=== PATIENT | female | born 1940 | race Hispanic/Latino ===

== ENCOUNTER 2017-07-08 21:42 | Emergency (ER) | payer MEDICARE ==
[~2017-07-08] VITALS: Ht 152.4 cm; Wt 46.7 kg
[~2017-07-08 21:42] MED LIST: AZATHIOPRINE50 MG PO; CLONAZEPAM0.5 MG PO; FENOFIBRATE145 MG PO; LATANOPROST2.5 ML OP; PENTASA500 MG PO; RISPERIDONE1 MG PO
--- OUTSIDE RECORDS SUMMARY | 2017-07-08 21:45 | XMS REPORT ---
Author Author [facility] Address Unknown Phone Unavailable Care Team Providers Care Sheriffs Officer Name Role Phone BRIA MARTINEZ Unavailable Unavailable Problems This patient has no known problems. Allergies, Adverse Reactions, Alerts This patient has no known allergies or adverse reactions. Medications This patient has no known medications. Results Test Description Test Time Test Comments Text Results Atomic Results Result Comments CT ABDOMEN/PELVIS W [place] [address] Patient Name: HILDA LUKE MR #: [id number] : 1940 Age/Sex: 76/F Req #: [id number] Adm Physician: BRIA MARTINEZ MD Ordered by: DANIEL MARQUES MD Report #: [id number] Location: MED/SURG3 Room/Bed: [facility] _ Procedure: [id number] CT/CT ABDOMEN/PELVIS W Exam Date: 03/10/17 Exam Time: 1110 REPORT STATUS: Signed PROCEDURE: CT ABDOMEN AND PELVIS WITH CONTRAST TECHNIQUE: The abdomen and pelvis were scanned utilizing a multidetector helical scanner from the diaphragm to the lesser trochanter after the IV administration of 100 cc of Isovue 370 and the oral administration of 900 cc of water. Coronal and sagittal multiplanar reformations were obtained. COMPARISON: None. INDICATIONS: ANEMIA FINDINGS: LOWER THORAX: Normal. HEPATOBILIARY: No focal hepatic lesions. No biliary ductal dilatation. Gallbladder partially contracted. SPLEEN: No splenomegaly. PANCREAS: No focal masses or ductal dilatation. ADRENALS: No adrenal nodules. KIDNEYS /URETERS: No hydronephrosis, stones, or solid mass lesions. Right superior pole 8.5 cm simple cyst. Tiny hypodensity in the right inferior renal pole is too small to characterize but statistically likely represents a cyst. Scarring in the left superior renal pole with adjacent calcification. PELVIC ORGANS/BLADDER: Hysterectomy. Bladder unremarkable. PERITONEUM / RETROPERITONEUM: Trace fluid in the pelvis. No free air. LYMPH NODES: No lymphadenopathy. VESSELS: Mild scattered atherosclerotic calcifications. No abdominal aortic aneurysm. GI TRACT: No distention or wall thickening. Appendix is normal. BONES AND SOFT TISSUES: Unremarkable. IMPRESSION: 1. Trace nonspecific free fluid in the pelvis. 2. Otherwise, no acute abnormalities. 3. Right renal 8.5 cm simple cyst. Dictated by: Naif Anne M.D. on 03/10/2017 at 14:46 Electronically approved by: Naif Anne M.D. on 03/10/2017 at 14:46 Dictated By: NAIF ANNE MD [id number] COPY TO: DANIEL MARQUES MD CHEST 2 VIEWS [place] [address] Patient Name: HILDA LUKE MR #: [id number] : 1940 Age/Sex: 76/F Req #: [id number] Adm Physician: BRIA MARTINEZ MD Ordered by: BRIA MARTINEZ MD Report #: [id number] Location: MED/SURG3 Room/Bed: 2861 ___ Procedure: [id number] DX/CHEST 2 VIEWS Exam Date: 03/08/17 Exam Time: 1830 REPORT STATUS: Signed EXAMINATION: CHEST 2 VIEWS INDICATION: COMPARISON: None FINDINGS: PA and lateral views TUBES and LINES: None. LUNGS: Lungs are well inflated. Lungs are clear. There is no evidence of pneumonia or pulmonary edema. PLEURA: No pleural effusion or pneumothorax. HEART AND MEDIASTINUM: The cardiomediastinal silhouette is unremarkable. Prominent cardiac fat pad. BONES AND SOFT TISSUES: Limited by generalized demineralization. No acute osseous lesion. Soft tissues are unremarkable. UPPER ABDOMEN: No free air under the diaphragm. IMPRESSION: No acute thoracic abnormality. Signed by: Dr. Otto Matthews MD on 03/08/2017 7:32 PM Dictated By: OTTO MATTHEWS MD 31 Transcribed By: PITO on 03/08/171931 COPY TO: BRIA MARTINEZ MD
[2017-07-08] MEDS ORDERED: SODIUM CHLORIDE 0.9% 1000ML 1,000 ML IV ONE (22:15)
[2017-07-08] MEDS ORDERED: ACETAMINOPHEN 325 MG TAB PO ONE (22:15)
[2017-07-08] MEDS ORDERED: CEFTRIAXONE SOD 1 GM VIAL IV ONE (22:15)
[2017-07-08 22:38] LABS: BASOPHILS % 0.1 % (0.0-1.0); EOSINOPHILS % 0.6 % (0.0-6.0); HEMATOCRIT 37.1 % (34.2-44.1); LYMPHOCYTES # (AUTO) 0.6 (1.0-3.2); LYMPHOCYTES % 9.3 % (18.0-39.1); MEAN CORPUSCULAR HEMOGLOBIN 32.9 pg (28-32); MEAN CORPUSCULAR VOLUME 93.9 fL (81-99); MONOCYTES # (AUTO) 0.5 (0.2-0.8); MONOCYTES % 6.8 % (4.4-11.3); NEUTROPHILS # (AUTO) 5.6 (2.1-6.9); NEUTROPHILS % 83.1 % (38.7-80.0); PLATELET COUNT 178 x10e3/uL (140-360); RED BLOOD COUNT 3.95 x10e6/uL (3.6-5.1); RED CELL DISTRIBUTION WIDTH 12.7 % (11.7-14.4)
[2017-07-08 22:50] LABS: ALBUMIN 3.9 g/dL (3.5-5.0); ALBUMIN/GLOBULIN RATIO 1.1 (0.8-2.0); ANION GAP 16.4 mmol/L (8-16); CALCIUM 9.9 mg/dL (8.4-10.2); CREATININE, SERUM 1.13 mg/dL (0.57-1.11); POTASSIUM 3.4 mmol/L (3.5-5.1)
--- NOTE | 2017-07-08 23:05 | Diagnostic Imaging Report ---
EXAMINATION: CHEST SINGLE (PORTABLE) INDICATION: Cough, fever COMPARISON: 03/08/2017 FINDINGS: TUBES and LINES: None. LUNGS: Lungs are not well inflated. Lungs are clear. There is no evidence of pneumonia or pulmonary edema. PLEURA: No pleural effusion or pneumothorax. HEART AND MEDIASTINUM: The cardiomediastinal silhouette is unremarkable. BONES AND SOFT TISSUES: No acute osseous lesion. Soft tissues are unremarkable. UPPER ABDOMEN: No free air under the diaphragm. IMPRESSION: 1. No acute thoracic abnormality. 2. Stable chest. Signed by: Dr. Javon Parekh M.D. on 07/08/2017 11:02 PM
[2017-07-08 23:08] LABS: INFLUENZAE A&B ANTIGEN (RAPID) NEGATIVE (NEGATIVE); STREPTOCOCCUS GRP A ANTIGEN POSITIVE (NEGATIVE)
[2017-07-08 23:32] VITALS: BP 139/77
== END 2017-07-09 00:05 | disposition home or self-care (01) ==
LOC: ER 21:42
DX: R05 Cough (principal); J20.9 Acute bronchitis, unspecified; J02.0 Streptococcal pharyngitis
CPT/HCPCS: 36415; 71045; 80053; 83518; 83605; 85025; 87040; 87400; 99284; J0696; J7030

== ENCOUNTER 2017-10-14 20:04 | Emergency (ER) | payer MEDICARE ==
[~2017-10-14] VITALS: Ht 152.4 cm; Wt 46.7 kg
[2017-10-14] MEDS ORDERED: SODIUM CHLORIDE 0.9% 1000ML 1,000 ML IV ONE (20:30)
[2017-10-14 20:37] LABS: BASOPHILS % 0.3 % (0.0-1.0); EOSINOPHILS # (AUTO) 0.1 (0.0-0.4); EOSINOPHILS % 1.3 % (0.0-6.0); HEMATOCRIT 38.8 % (34.2-44.1); HEMOGLOBIN 12.9 g/dL (12.0-16.0); LYMPHOCYTES # (AUTO) 1.3 (1.0-3.2); LYMPHOCYTES % 20.2 % (18.0-39.1); MEAN CORPUSCULAR HEMOGLOBIN 31.5 pg (28-32); MEAN CORPUSCULAR HGB CONC 33.2 g/dL (31-35); MEAN CORPUSCULAR VOLUME 94.6 fL (81-99); MONOCYTES # (AUTO) 0.7 (0.2-0.8); MONOCYTES % 10.6 % (4.4-11.3); NEUTROPHILS # (AUTO) 4.2 (2.1-6.9); NEUTROPHILS % 67.3 % (38.7-80.0); PLATELET COUNT 223 x10e3/uL (140-360); RED CELL DISTRIBUTION WIDTH 13.3 % (11.7-14.4)
[2017-10-14 20:41] LABS: CLARITY,URINE CLEAR (CLEAR); COLOR,URINE YELLOW (YELLOW)
[2017-10-14 20:42] LABS: BILIRUBIN,URINE NEGATIVE (NEGATIVE); KETONES,URINE NEGATIVE (NEGATIVE); LEUKOCYTE ESTERASE ,URINE 1+ (NEGATIVE); NITRITE,URINE NEGATIVE (NEGATIVE); PROTEIN,URINE DIPSTICK NEGATIVE (NEGATIVE); URINE UROBILINOGEN 0.2 mg/dL (0.2 - 1)
[2017-10-14 20:58] LABS: EPITHELIAL CELLS,URINE FEW /LPF; TRANSITIONAL EPI CELLS,URINE MODERATE
[2017-10-14 20:59] LABS: ALBUMIN 3.4 g/dL (3.5-5.0); ANION GAP 17.7 mmol/L (8-16); CALCIUM 9.9 mg/dL (8.4-10.2); CREATININE, SERUM 1.09 mg/dL (0.57-1.11); POTASSIUM 3.7 mmol/L (3.5-5.1)
[2017-10-14 21:02] LABS: RENAL EPITHELIAL CELLS,URINE MODERATE
[2017-10-14] MEDS ORDERED: SODIUM CHLORIDE 0.9% 50ML 50 ML ONE (21:07)
[2017-10-14] MEDS ORDERED: IOPAMIDOL 370 MG/ML 200 ML INFUS..BTL INJ ONE (21:08)
--- NOTE | 2017-10-14 21:42 | Diagnostic Imaging Report ---
EXAM: CT ABDOMEN AND PELVIS with IV CONTRAST DATE: 10/14/2017 8:23 PM Time stamp on Exam: 2121 hours INDICATION: Abdominal pain, diarrhea COMPARISON: None TECHNIQUE: The abdomen and pelvis were scanned using a multidetector helical scanner. Coronal and sagittal reformations were obtained. Routine protocol performed. IV Contrast: 100 cc Isovue-370 Oral Contrast: Water CTDIvol has been reviewed. It is below the limits set by the Radiation Protocol Committee (RPC). FINDINGS: LOWER THORAX: No consolidations LIVER: No masses BILIARY: The gallbladder is unremarkable. No ductal dilation. SPLEEN: No masses PANCREAS: No masses ADRENALS: No nodules KIDNEYS: Symmetric perfusion. No enhancing masses. No hydronephrosis. Simple cyst measuring 9 cm arising from the superior pole of the right kidney. Scarring superior pole of the left kidney. GI TRACT: Mucosal enhancement of the descending and sigmoid colon, and to a lesser extent the transverse colon. Normal appendix. No bowel obstruction. VESSELS: Mild atherosclerotic changes of the abdominal aorta. PERITONEUM/RETROPERITONEUM: No free air or fluid LYMPH NODES: No lymphadenopathy REPRODUCTIVE ORGANS: The uterus and ovaries are not visualized. BLADDER: Unremarkable SOFT TISSUES: Unremarkable BONES: No suspicious bone lesions. IMPRESSION: Nonspecific colitis predominantly involving the descending and rectosigmoid colon. No bowel obstruction or abscess formation. Signed by: Dr. Estelle Corral M.D. on 10/14/2017 9:38 PM
[2017-10-14 21:54] VITALS: BP 120/59
== END 2017-10-14 22:00 | disposition home or self-care (01) ==
LOC: ER 20:04
DX: K52.89 Other specified noninfective gastroenteritis and colitis (principal)
CPT/HCPCS: 36415; 74177; 80053; 81001; 82150; 83690; 85025; 99284; J7030; Q9967

== ENCOUNTER 2018-03-16 22:14 | Observation (INO) | payer MEDICARE ==
[~2018-03-16] VITALS: Ht 152.4 cm; Wt 49.9 kg
[2018-03-16 22:39] LABS: BASOPHILS % 0.1 % (0.0-1.0); HEMATOCRIT 34.2 % (34.2-44.1); HEMOGLOBIN 11.4 g/dL (12.0-16.0); LYMPHOCYTES % 12.3 % (18.0-39.1); MEAN CORPUSCULAR HEMOGLOBIN 31.4 pg (28-32); MEAN CORPUSCULAR HGB CONC 33.3 g/dL (31-35); MEAN CORPUSCULAR VOLUME 94.2 fL (81-99); MONOCYTES # (AUTO) 0.4 (0.2-0.8); NEUTROPHILS # (AUTO) 6.6 (2.1-6.9); NEUTROPHILS % 82.2 % (38.7-80.0); PLATELET COUNT 173 x10e3/uL (140-360); RED BLOOD COUNT 3.63 x10e6/uL (3.6-5.1); RED CELL DISTRIBUTION WIDTH 14.6 % (11.7-14.4)
[2018-03-16 22:51] LABS: ALBUMIN 3.7 g/dL (3.5-5.0); ALBUMIN/GLOBULIN RATIO 1.2 (0.8-2.0); ANION GAP 17.8 mmol/L (8-16); CALCIUM 8.7 mg/dL (8.4-10.2); CREATININE, SERUM 1.07 mg/dL (0.57-1.11); POTASSIUM 3.8 mmol/L (3.5-5.1)
[2018-03-16] MEDS ORDERED: AZITHROMYCIN 500MG/NS 250 ML 250 ML IV STA (23:38)
--- NOTE | 2018-03-16 23:56 | Diagnostic Imaging Report ---
EXAM: CHEST SINGLE (PORTABLE), AP 1 view INDICATION: Cough, congestion COMPARISON: AP view of the chest July 08, 2017 FINDINGS: LINES/TUBES: None LUNGS: No consolidations or edema. Stable biapical scarring. PLEURA: No effusions or pneumothorax. HEART AND MEDIASTINUM: Normal size and contour. BONES AND SOFT TISSUES: No acute findings. IMPRESSION: No acute thoracic abnormality. Signed by: Dr. Estelle Corral M.D. on 03/16/2018 11:53 PM
[2018-03-17] VITALS (9 sets, daily range): BP systolic 122–153; BP diastolic 58–70
[2018-03-17] MEDS ORDERED: SIMVASTATIN40 MG PO
[2018-03-17] MEDS ORDERED: apixaban PO
[2018-03-17] MEDS ORDERED: VITAMIN D1000 UNI1 PO (00:01)
[2018-03-17] MEDS ORDERED: MIRTAZAPINE15 MG PO (00:01)
[2018-03-17] MEDS ORDERED: PROLIA60 MG/1 ML SQ (00:05)
[2018-03-17] MEDS: CEFTRIAXONE SOD 1 GM VIAL IV SCH (00:23)
[2018-03-17] MEDS ORDERED: LEVOFLOXACIN 750MG/DEXTROSE PREMIX BAG 150ML IV SCH (00:30)
[2018-03-17] MEDS ORDERED: AZITHROMYCIN 500MG/SOD CHL 0.9% 250ML BAG IV SCH (00:30)
[2018-03-17 01:01] LABS: CREATINE KINASE MB 3.2 ng/mL (0-5.0)
[2018-03-17] MEDS: ACETAMINOPHEN/CODEINE 300MG - 30MG TAB PO PRN (03:25)
[2018-03-17] MEDS: GUAIFENESIN 200 MG/10 ML UDC PO PRN ×3 (03:38→12:13)
[2018-03-17] MEDS: ALBUTEROL/IPRATROPIUM 3 ML NEB NEB PRN ×3 (07:32→19:15)
[2018-03-17] MEDS ORDERED: SODIUM CHLORIDE 0.45% 1,000 ML IV ONE (14:30)
[2018-03-17] MEDS ORDERED: METHYLPREDNISOLONE SOD SUCC 40 MG/ML VIAL IV ONE (14:50)
--- NOTE | 2018-03-17 15:59 | History and Physical ---
CHIEF COMPLAINT: Cough, congestion, and subjective fever. HPI: This is a 77-year-old female with past medical history of Crohn disease and history of DVT, on Imuran, who comes into the ED with complaints of cough, congestion, and subjective fever ongoing for the last 2 days prior to arrival to the ED. According to the daughter at bedside, she has been having increasing cough and congestion. Patient also reports subjective fever at home. Denies any chest pain or palpitation. No abdominal pain or diarrhea. Patient is seen and evaluated at bedside on the medical floor, currently doing much better after given IV antibiotics in the ED. REVIEW OF SYSTEMS: Pertinent positive: Cough, congestion, subjective fever. Pertinent negative: Denies any chest pain, palpitation, nausea, vomiting, diarrhea, dysuria, hematuria, frequency, urgency, lightheadedness, dizziness, abdominal pain, headache, shortness of breath, fever, or any other complaints. Rest of the 14-point review of systems has reviewed with the patient and are negative. ALLERGIES: TO LEVAQUIN. HOME MEDICATIONS 1. Vitamin D3 1000 units daily. 2. Pentasa 500 mg p.o. a.c. at bedtime. 3. Mirtazapine 15 mg at bedtime. 4. Simvastatin 40 mg daily. 5. Eliquis 2.5 mg daily. PAST MEDICAL HISTORY: History of Crohn disease and history of DVT, on Imuran. PAST SURGICAL HISTORY: None. FAMILY HISTORY: Hypertension, diabetes. SOCIAL HISTORY: No drugs, no alcohol, does not smoke. Good social support. LABORATORY FINDINGS: Show white count 8, hemoglobin 11.4, hematocrit is 34, platelets of 173. Chemistry: Sodium is 148, potassium 3.8, chloride 113, bicarb 21. Anion gap of 17, BUN is 30, creatinine is 1, glucose is 105, calcium 8.7, total bilirubin 0.2. AST 59, ALT 103. Troponins were negative x2. Albumin was 3.7. Influenza was negative. MICROBIOLOGY: Blood cultures are pending. IMAGING STUDIES: Chest x-ray was negative. PHYSICALLY EXAMINATION VITAL SIGNS: Temperature is 98.4, pulse 78, respiratory rate is 16, blood pressure 132/58, pulse ox 98% on 2 liters nasal cannula. GENERAL: Not in acute distress, alert and oriented x3. Cooperative on examination. HEENT: Head; normocephalic, atraumatic. Eyes; pupils equal, round and reactive to light bilaterally. Extraocular movements are intact bilaterally. Throat; no evidence of any erythema or exudates in the posterior pharynx, has poor dentition. NECK: Supple. Good range of motion. PULMONARY: Has expiratory wheezing appreciated, fine crackles. No rales. Good inspiratory and expiratory effort. CARDIOVASCULAR: Positive S1 and S2. No murmurs, rubs, or gallops appreciated. ABDOMEN: Soft, nondistended, nontender to palpation. Bowel sounds present. MUSCULOSKELETAL: Strength is 5/5 bilaterally. No evidence of any musculoskeletal deficits on examination. No weakness appreciated. NEUROLOGICAL: Cranial nerves II through XII are grossly intact. No evidence of any neurologic deficit on exam. SKIN: Intact. Warm to touch. Good cap refill. PSYCHIATRIC: Normal affect and mood. EXTREMITIES: No edema. Good range of motion. IMPRESSION 1. Community-acquired pneumonia with history of cough and congestion - blood cultures are pending, IV antibiotics. We will give 1 dose of IV Solu-Medrol, add Robitussin with codeine, symptomatic treatment, neb treatments. 2. History of deep vein thrombosis - continue with Eliquis. 3. Mild hypernatremia. We are going to encourage oral hydration for now and repeat labs in the morning. 4. History of Crohn disease - continue with same home medications with no changes. 5. Prophylaxis will be Eliquis. 6. Fluid, electrolytes, nutrients - no IV fluids indicated at this time, regular diet. 7. PT/OT eval and treat. 8. Disposition - inpatient, we will continue to follow. DISCHARGE PLANNING: Patient is still medically debilitated and still very sick at this time. She will likely be here for an additional night and may need to be even longer considering that she is on immunosuppression leading to her being immunosuppressed host which could make problems worse. Job#: [id number] SUB
[2018-03-17 16:48] LABS: CREATINE KINASE MB 3.6 ng/mL (0-5.0)
[2018-03-17] MEDS: GUAIFENESIN/CODEINE 10 ML CUP PO PRN (17:05)
[2018-03-17] MEDS: MESALAMINE 500 MG CAPCR PO SCH ×2 (17:05→20:30)
[2018-03-17] MEDS: SIMVASTATIN 40 MG TAB PO SCH (20:30)
[2018-03-17] MEDS: MIRTAZAPINE 15 MG TAB PO SCH (20:30)
[2018-03-18] VITALS (8 sets, daily range): BP systolic 117–139; BP diastolic 59–69
[2018-03-18] MEDS ORDERED: AZITHROMYCIN 500MG/SOD CHL 0.9% 250ML BAG IV SCH
[2018-03-18] MEDS: ALBUTEROL/IPRATROPIUM 3 ML NEB NEB PRN ×4 (00:30→22:00)
[2018-03-18] MEDS: CEFTRIAXONE SOD 1 GM VIAL IV SCH ×2 (03:07→23:45)
[2018-03-18 05:00] LABS: HEMATOCRIT 29.3 % (34.2-44.1); HEMOGLOBIN 9.6 g/dL (12.0-16.0); LYMPHOCYTES # (AUTO) 0.5 (1.0-3.2); LYMPHOCYTES % 10.8 % (18.0-39.1); MEAN CORPUSCULAR HEMOGLOBIN 31.1 pg (28-32); MEAN CORPUSCULAR HGB CONC 32.8 g/dL (31-35); MEAN CORPUSCULAR VOLUME 94.8 fL (81-99); MONOCYTES # (AUTO) 0.2 (0.2-0.8); MONOCYTES % 4.2 % (4.4-11.3); NEUTROPHILS # (AUTO) 4.2 (2.1-6.9); NEUTROPHILS % 84.4 % (38.7-80.0); PLATELET COUNT 139 x10e3/uL (140-360); RED BLOOD COUNT 3.09 x10e6/uL (3.6-5.1); RED CELL DISTRIBUTION WIDTH 14.6 % (11.7-14.4)
[2018-03-18 05:17] LABS: ANION GAP 16.3 mmol/L (8-16); CALCIUM 7.7 mg/dL (8.4-10.2); CREATININE, SERUM 0.95 mg/dL (0.57-1.11); POTASSIUM 4.3 mmol/L (3.5-5.1)
[2018-03-18] MEDS: MESALAMINE 500 MG CAPCR PO SCH ×4 (08:25→20:45)
[2018-03-18] MEDS: APIXAB 2.5 MG TABLET PO SCH (08:39)
[2018-03-18] MEDS: CHOLECALCIFEROL 1,000 UNIT TAB PO SCH (08:39)
[2018-03-18] MEDS: BENZONATATE 100 MG CAP PO PRN ×2 (08:39→16:44)
[2018-03-18] MEDS: AZITHROMYCIN 500MG/SOD CHL 0.9% 250ML BAG IV SCH (12:08)
--- NOTE | 2018-03-18 15:00 | Progress Note ---
DATE: NO DICTATION (00:29) Job#: [id number] SUB
--- NOTE | 2018-03-18 15:09 | Progress Note ---
DATE: March 18, 2018 MEDICINE PROGRESS NOTE SUBJECTIVE: Patient is breathing much better today with no complaints. We are under process of weaning her off of oxygen. She does have some cough and congestion but much improved compared to yesterday. OBJECTIVE VITAL SIGNS: Temperature is 97.7, pulse 79, respiratory rate of 16, blood pressure 119/69, pulse ox 97%, and she is on 1 liter nasal cannula. GENERAL: Not in acute distress, alert and oriented x3, cooperative on examination. HEENT: Head normocephalic, atraumatic. Eyes: Pupils are equal, round, and reactive to light bilaterally. Extraocular movements intact bilaterally. Throat; no evidence of any erythema or exudates in the posterior pharynx. Has poor dentition. NECK: Supple with good range of motion. PULMONARY: Clear to auscultation bilaterally. No wheezing, no rales, no rhonchi, no crackles appreciated. CARDIOVASCULAR: Positive S1, S2. No murmurs, rubs, or gallops appreciated. ABDOMEN: Soft, nondistended, nontender to palpation. Bowel sounds present. MUSCULOSKELETAL: Strength is 5/5 throughout. No evidence of any muscle deficit on examination. No weakness appreciated. NEUROLOGICAL: Cranial nerves II through XII are grossly intact. No evidence of any neurological deficit on exam. SKIN: Intact. Warm to touch. Good capillary refill. PSYCHIATRIC: Normal affect and mood. EXTREMITIES: No edema. Good range of motion throughout. LAB FINDINGS: White count 5, hemoglobin 9.6, hematocrit is 29, platelets of 139. Chemistry, sodium 140, potassium 4.3, chloride 108, bicarb 20, anion gap is 16, BUN is 21, creatinine is 0.95, glucose is 128, calcium is 7.7. Her troponins were negative. Albumin is 3.7. Microbiology, blood cultures were found to be no growth. IMAGING STUDIES: Chest x-ray showed no acute thoracic abnormality. IMPRESSION 1. Community-acquired pneumonia with cough and congestion-blood cultures, no growth. Continue with intravenous antibiotics. We will continue with Robitussin with codeine and symptomatic treatment. 2. History of deep venous thrombosis. Continue with Eliquis. 3. Mild hypernatremia, resolved. 4. History of Crohn disease, at baseline. Continue same home medications. 5. Prophylaxis Eliquis. 6. Fluid, electrolytes, nutrients-no intravenous fluids, regular diet. 7. Physical therapy, occupational therapy, evaluation and treat. 8. Disposition-inpatient, no consultants needed. DISCHARGE PLANNING: Our goal is to wean her off of oxygen; and if she is doing well tomorrow, afebrile, white count is normal, and she has no other complaints, she will be discharged home. Job#: [id number] LPA
[2018-03-18] MEDS: SIMVASTATIN 40 MG TAB PO SCH (20:45)
[2018-03-18] MEDS: GUAIFENESIN/CODEINE 10 ML CUP PO PRN (20:45)
[2018-03-18] MEDS: MIRTAZAPINE 15 MG TAB PO SCH (20:45)
[2018-03-19] VITALS (8 sets, daily range): BP systolic 110–143; BP diastolic 53–65
[2018-03-19] MEDS: GUAIFENESIN 200 MG/10 ML UDC PO PRN (04:08)
[2018-03-19] MEDS: ACETAMINOPHEN/CODEINE 300MG - 30MG TAB PO PRN (04:09)
[2018-03-19] MEDS: ALBUTEROL/IPRATROPIUM 3 ML NEB NEB PRN ×3 (07:23→20:00)
[2018-03-19] MEDS: MESALAMINE 500 MG CAPCR PO SCH ×4 (07:50→20:15)
[2018-03-19] MEDS: APIXAB 2.5 MG TABLET PO SCH (08:52)
[2018-03-19] MEDS: CHOLECALCIFEROL 1,000 UNIT TAB PO SCH (08:52)
[2018-03-19] MEDS: AZITHROMYCIN 500MG/SOD CHL 0.9% 250ML BAG IV SCH (12:14)
--- NOTE | 2018-03-19 15:02 | Progress Note ---
DATE: March 19, 2018 MEDICINE PROGRESS NOTE SUBJECTIVE: Patient still reports having some cough significantly, though she is afebrile and the white count is normal. OBJECTIVE VITAL SIGNS: Temperature is 97.6, pulse 90, respiratory rate 20, blood pressure 133/60, pulse ox 99% on 2 L nasal cannula. LABS: None. Blood cultures are negative at greater than 48 hours. PHYSICAL EXAMINATION GENERAL: Not in acute distress, alert and oriented x3, cooperative on examination. HEENT: Head is normocephalic, atraumatic. Eyes: Pupils are equal, round, and reactive to light bilaterally. Extraocular movements intact bilaterally. NECK: Supple. Good range of motion. THROAT: No evidence of any erythema or exudates in the posterior pharynx. Has poor dentition. PULMONARY: Clear to auscultation bilaterally. No wheezing, no rales, no rhonchi, no crackles appreciated. CARDIOVASCULAR: Positive S1, S2. No murmurs, rubs, or gallops appreciated. ABDOMEN: Soft, nondistended, nontender to palpation. Bowel sounds present. MUSCULOSKELETAL: Strength is 5/5 throughout. No evidence of any musculoskeletal deficit on examination. No weakness appreciated. NEUROLOGICAL: Cranial nerves II through XII are grossly intact. No evidence of any neurological deficit on exam. SKIN: Intact. Warm to touch. Good cap refill. PSYCHIATRIC: Normal affect and mood. EXTREMITIES: No edema. Good range of motion throughout. IMPRESSION 1. Community-acquired pneumonia with cough and congestion: Blood cultures are negative. Continue IV antibiotics. Symptomatic treatment in relation to her cough and congestion. 2. History of deep venous thrombosis with Eliquis. 3. Mild hypernatremia, resolved. 4. History of Crohn disease, at baseline. 5. Prophylaxis: Eliquis. 6. Fluid, electrolytes, nutrients: No IV fluids, regular diet. 7. Physical therapy and occupational therapy to evaluate and treat. 8. Plan to discharge home tomorrow once the family is comfortable. Job#: [id number]
[2018-03-19] MEDS: MIRTAZAPINE 15 MG TAB PO SCH (20:15)
[2018-03-19] MEDS: SIMVASTATIN 40 MG TAB PO SCH (20:15)
[2018-03-19] MEDS: GUAIFENESIN/CODEINE 10 ML CUP PO PRN (20:19)
[2018-03-19] MEDS: CEFTRIAXONE SOD 1 GM VIAL IV SCH (23:35)
[2018-03-20] VITALS: BP 120/56
[2018-03-20] MEDS: ALBUTEROL/IPRATROPIUM 3 ML NEB NEB PRN ×3 (01:00→13:00)
[2018-03-20 04:00] VITALS: BP 131/60
[2018-03-20 05:09] LABS: BASOPHILS % 0.2 % (0.0-1.0); EOSINOPHILS # (AUTO) 0.2 (0.0-0.4); EOSINOPHILS % 4.2 % (0.0-6.0); HEMATOCRIT 29.5 % (34.2-44.1); HEMOGLOBIN 9.6 g/dL (12.0-16.0); LYMPHOCYTES # (AUTO) 1.3 (1.0-3.2); LYMPHOCYTES % 29.5 % (18.0-39.1); MEAN CORPUSCULAR HEMOGLOBIN 30.7 pg (28-32); MEAN CORPUSCULAR HGB CONC 32.5 g/dL (31-35); MEAN CORPUSCULAR VOLUME 94.2 fL (81-99); MONOCYTES # (AUTO) 0.4 (0.2-0.8); MONOCYTES % 8.9 % (4.4-11.3); NEUTROPHILS # (AUTO) 2.4 (2.1-6.9); NEUTROPHILS % 56.7 % (38.7-80.0); PLATELET COUNT 157 x10e3/uL (140-360); RED BLOOD COUNT 3.13 x10e6/uL (3.6-5.1); RED CELL DISTRIBUTION WIDTH 14.7 % (11.7-14.4)
[2018-03-20 05:44] LABS: ANION GAP 13.5 mmol/L (8-16); CALCIUM 8.7 mg/dL (8.4-10.2); CREATININE, SERUM 0.91 mg/dL (0.57-1.11); POTASSIUM 3.5 mmol/L (3.5-5.1)
[2018-03-20 07:55] VITALS: BP 121/56
[2018-03-20] MEDS: MESALAMINE 500 MG CAPCR PO SCH ×2 (08:15→12:31)
[2018-03-20 08:40] VITALS: BP 121/56
[2018-03-20] MEDS: BENZONATATE 100 MG CAP PO PRN (08:40)
[2018-03-20] MEDS: CHOLECALCIFEROL 1,000 UNIT TAB PO SCH (08:40)
[2018-03-20] MEDS: APIXAB 2.5 MG TABLET PO SCH (08:40)
[2018-03-20 11:57] VITALS: BP 126/58
[2018-03-20] MEDS: AZITHROMYCIN 500MG/SOD CHL 0.9% 250ML BAG IV SCH (12:31)
[2018-03-20] MEDS ORDERED: LEVAQUIN500 MG PO (15:40)
[2018-03-20] MEDS ORDERED: TESSALON PERLE100 MG PO (15:41)
[2018-03-20] MEDS ORDERED: GUAIFENESIN-CO118 ML PO (15:48)
--- NOTE | 2018-03-20 16:06 | Discharge Summary ---
FINAL DISCHARGE DIAGNOSES 1. Community-acquired pneumonia. 2. Cough and congestion secondary to #1. 3. History of deep venous thrombosis on Eliquis. 4. Mild hyponatremia, resolved. 5. History of Crohn disease. ENGINE PILOT: None. VITAL SIGNS: Temperature 96.7, pulse 72, respiratory rate 18, blood pressure 126/58, pulse ox 96% on room air. LAB FINDINGS: White count 4.2, hemoglobin 9.6, hematocrit 29.5, platelets of 157. Chemistry: Sodium 142, potassium 3.5, chloride 108, bicarb 24, anion gap 13, BUN 16, creatinine 0.91, glucose 87. Calcium 8.7. Troponins are negative times 3. MICROBIOLOGY: Blood cultures times 4 were negative. IMAGING STUDIES: Chest x-ray was found to be negative. HOSPITAL COURSE: This is a 77-year-old female who came in with complaints of cough and congestion and was treated for community-acquired pneumonia. Patient was on IV antibiotics. Blood cultures were negative times 4. Patient was on antibiotics and symptomatic treatment with improvement in her cough. Patient was afebrile prior to discharge home. Her labs were reviewed and were stable. On the day of discharge, her vital signs were stable. Labs were reviewed and stable. The patient was seen and evaluated and examined thoroughly on the day of discharge. No other complaints. The patient verbalized an understanding and agrees with the plan of care to follow up with pulmonary as an outpatient and with primary care physician in 1 week's time. MEDICATIONS: See med reconciliation form, including Robitussin with Codeine 5 mL every 4 hours as needed, 120 mL quantity given, and Levaquin 500 mg 1 tab p.o. daily for 10 days. DISPOSITION: Home. CONDITION: Stable. DIET: Heart healthy. In the event of any worsening symptoms, the patient was advised to come back to the ED for further evaluation. Discharge summary took greater than 35 minutes. ISAIAS REYNOLDS MD Job#: [id number]
== END 2018-03-20 16:09 | disposition home or self-care (01) ==
LOC: ER 22:14 → ERHOLD 03-17 00:21 → IMCU 03-17 01:43
PROVIDERS: ADMIT Internal Medicine; ATTEND Internal Medicine
DX: J18.9 Pneumonia, unspecified organism (principal); Z86.718 Personal history of other venous thrombosis and embolism; Z79.01 Long term (current) use of anticoagulants; E87.0 Hyperosmolality and hypernatremia; K50.90 Crohn's disease, unspecified, without complications
CPT/HCPCS: 36415 ×4; 71045; 80048 ×2; 80053; 82550; 82553; 84484; 85025 ×3; 87040; 87400; 94640 ×8; 97110 ×2; 97116 ×3; 97162; 97530; 99284; G0378 ×4; G8978; G8979; J0456 ×4; J0696 ×3; J2920

== ENCOUNTER 2019-02-18 18:55 | Inpatient (IN) | payer MEDICARE ==
[~2019-02-18] VITALS: Ht 152.4 cm; Wt 49.9 kg
[~2019-02-18 18:55] MED LIST changes: +GUAIFENESIN-CO118 ML PO; +LEVAQUIN500 MG PO; +MIRTAZAPINE15 MG PO; +PROLIA60 MG/1 ML SQ; +SIMVASTATIN40 MG PO; +TESSALON PERLE100 MG PO; +VITAMIN D1000 UNI1 PO; +apixaban PO
[2019-02-18] MEDS ORDERED: ONDANSETRON HCL INJ 2MG/ML 2ML 2 MG/ML VIAL IV ONE (19:22)
[2019-02-18] MEDS ORDERED: SODIUM CHLORIDE 0.9% 1000ML 1,000 ML IV ONE (19:30)
[2019-02-18 19:41] LABS: BASOPHILS % 0.6 % (0.0-1.0); EOSINOPHILS % 0.4 % (0.0-6.0); HEMATOCRIT 38.1 % (34.2-44.1); HEMOGLOBIN 12.9 g/dL (12.0-16.0); LYMPHOCYTES % 20.4 % (18.0-39.1); MEAN CORPUSCULAR HEMOGLOBIN 31.4 pg (28-32); MEAN CORPUSCULAR HGB CONC 33.9 g/dL (31-35); MEAN CORPUSCULAR VOLUME 92.7 fL (81-99); MONOCYTES # (AUTO) 0.6 (0.2-0.8); MONOCYTES % 11.7 % (4.4-11.3); NEUTROPHILS # (AUTO) 3.4 (2.1-6.9); NEUTROPHILS % 66.1 % (38.7-80.0); PLATELET COUNT 228 x10e3/uL (140-360); RED BLOOD COUNT 4.11 x10e6/uL (3.6-5.1); RED CELL DISTRIBUTION WIDTH 13.1 % (11.7-14.4)
[2019-02-18] MEDS ORDERED: DIATRIZOATE MEGL/DIATRIZOA SOD 30 ML BTL PO ONE (19:43)
[2019-02-18 20:02] LABS: AMYLASE 27 U/L (25-125); LIPASE 122 U/L (8-78)
[2019-02-18 20:13] LABS: ALBUMIN 3.3 g/dL (3.5-5.0); ALBUMIN/GLOBULIN RATIO 0.8 (0.8-2.0); ANION GAP 17.8 mmol/L (8-16); CALCIUM 10.3 mg/dL (8.4-10.2); CREATININE, SERUM 1.24 mg/dL (0.57-1.11); POTASSIUM 3.8 mmol/L (3.5-5.1)
[2019-02-18 20:54] LABS: INR 1.15; PARTIAL THROMBOPLASTIN TIME 31.3 seconds (23.8-35.5); PROTHROMBIN TIME 15.3 seconds (11.9-14.5)
--- NOTE | 2019-02-18 22:23 | Diagnostic Imaging Report ---
EXAM: CT Abdomen and Pelvis WITH contrast INDICATION: Left lower quadrant pain, diarrhea COMPARISON: Abdominal CT 10/14/2017. TECHNIQUE: Abdomen and pelvis were scanned utilizing a multidetector helical scanner from the lung base to the pubic symphysis after administration of IV contrast. Coronal and sagittal reformations were obtained. Routine protocol was performed. Scan was performed when during portal venous phase. IV CONTRAST: 100 mL of Isovue 370 ORAL CONTRAST: Gastrografin COMPLICATIONS: None RADIATION DOSE: Total DLP: 342 mGy*cm Estimated effective dose: (DLP x 0.015 x size factor) mSv CTDIvol has been reviewed. It is below the limits set by the Radiation Protocol Committee (RPC). Dose modulation, iterative reconstruction, and/or weight based adjustment of the mA/kV was utilized to reduce the radiation dose to as low as reasonably achievable. FINDINGS: LINES and TUBES: None. LOWER THORAX: Unremarkable HEPATOBILIARY: No focal hepatic lesions. No biliary ductal dilation. GALLBLADDER: No radio-opaque stones or sludge. No wall thickening. Mildly distended. SPLEEN: No splenomegaly. PANCREAS: No focal masses or ductal dilatation. ADRENALS: No adrenal nodules KIDNEYS/URETERS: Kidneys enhance symmetrically. No hydronephrosis. No solid mass lesions. Slight increased size of a 10.8 cm right renal superior pole simple cyst, was 9.5 cm on 10/14/2017. Left renal superior pole calcific scarring. No stones. GI TRACT: Mild wall thickening and mucosal hyperenhancement of the cecum, ascending, descending, and sigmoid colon, and rectum. Loss of haustrations at the splenic flexure and descending colon. Small hiatal hernia. No abnormal distention, or evidence of bowel obstruction. Slightly prominent colonic vasa recta arteries. Appendix is normal. PELVIC ORGANS/BLADDER: Hysterectomy. No adnexal masses. LYMPH NODES: No lymphadenopathy. VESSELS: There is mild atherosclerotic disease in the aorta and major arterial branches. PERITONEUM / RETROPERITONEUM: No free air or fluid. BONES: There are degenerative changes in the lumbar spine. Low bone mineral density. SOFT TISSUES: Unremarkable. IMPRESSION: Nonspecific recurrent colitis involving the cecum, ascending, descending, and sigmoid colon and rectum. Inflammatory bowel disease is a consideration. No abscess. Signed by: Ruddy Angel DO on 02/18/2019 10:20 PM
[2019-02-18 22:52] LABS: BILIRUBIN,URINE NEGATIVE (NEGATIVE); CLARITY,URINE CLEAR (CLEAR); COLOR,URINE YELLOW (YELLOW); KETONES,URINE TRACE (NEGATIVE); LEUKOCYTE ESTERASE ,URINE SMALL (NEGATIVE); NITRITE,URINE NEGATIVE (NEGATIVE); PROTEIN,URINE DIPSTICK NEGATIVE (NEGATIVE); URINE UROBILINOGEN 2 mg/dL (0.2 - 1)
[2019-02-18] MEDS ORDERED: ONDANSETRON HCL INJ 2MG/ML 2ML 2 MG/ML VIAL IV PRN (23:00)
[2019-02-18] MEDS ORDERED: MORPHINE SULFATE INJ 4 MG/ML INJ 1ML IV PRN (23:00)
[2019-02-18 23:09] LABS: BACTERIA,URINE FEW /HPF; EPITHELIAL CELLS,URINE FEW /LPF; RBC,URINE 0-5 /HPF (0-5)
[2019-02-19] MEDS: CEFTRIAXONE SOD 1 GM/NS 50 ML 50 ML IV SCH ×2 (01:00→23:00)
[2019-02-19] MEDS: SODIUM CHLORIDE 0.9% 1000ML 1,000 ML IV SCH ×3 (01:00→14:56)
[2019-02-19] MEDS: METRONIDAZOLE 500MG/NS 100ML IV SCH ×3 (01:36→21:11)
[2019-02-19 06:25] LABS: BASOPHILS % 0.5 % (0.0-1.0); EOSINOPHILS # (AUTO) 0.1 (0.0-0.4); EOSINOPHILS % 1.8 % (0.0-6.0); HEMATOCRIT 29.9 % (34.2-44.1); HEMOGLOBIN 9.9 g/dL (12.0-16.0); LYMPHOCYTES # (AUTO) 0.9 (1.0-3.2); LYMPHOCYTES % 21.4 % (18.0-39.1); MEAN CORPUSCULAR HEMOGLOBIN 31.3 pg (28-32); MEAN CORPUSCULAR HGB CONC 33.1 g/dL (31-35); MEAN CORPUSCULAR VOLUME 94.6 fL (81-99); MONOCYTES # (AUTO) 0.7 (0.2-0.8); MONOCYTES % 17.6 % (4.4-11.3); NEUTROPHILS # (AUTO) 2.3 (2.1-6.9); NEUTROPHILS % 57.9 % (38.7-80.0); PLATELET COUNT 189 x10e3/uL (140-360); RED BLOOD COUNT 3.16 x10e6/uL (3.6-5.1); RED CELL DISTRIBUTION WIDTH 13.2 % (11.7-14.4)
[2019-02-19 06:47] LABS: ALANINE AMINOTRANSFERASE 24 IU/L (0-55); ALBUMIN 2.1 g/dL (3.5-5.0); ALBUMIN/GLOBULIN RATIO 0.8 (0.8-2.0); ALKALINE PHOSPHATASE 121 IU/L (40-150); AMYLASE 21 U/L (25-125); ANION GAP 15.1 mmol/L (8-16); BLOOD UREA NITROGEN 11 mg/dL (7-26); BUN/CREATININE RATIO 12 (6-25); CALCIUM 7.9 mg/dL (8.4-10.2); CARBON DIOXIDE 21 mmol/L (22-29); CHLORIDE 108 mmol/L (98-107); EST GLOMERULAR FILTRATION RATE > 60 ML/MIN (60-); GLUCOSE 75 mg/dL (74-118); LIPASE 8 U/L (8-78); POTASSIUM 3.1 mmol/L (3.5-5.1); SODIUM 141 mmol/L (136-145)
[2019-02-19 11:53] LABS: C DIFFICILE TOXIN A&B AMP PROB NEGATIVE (NEGATIVE)
[2019-02-19 12:48] LABS: WBC,FECAL (FECAL LACTOFERRIN) POSITIVE (NEGATIVE)
[2019-02-19 13:07] LABS: MAGNESIUM 1.4 MG/DL (1.3-2.1); POTASSIUM 3.3 mmol/L (3.5-5.1)
[2019-02-19] MEDS ORDERED: MAGNESIUM SULFATE 2GM/50ML 50 ML IV ONE (14:00)
[2019-02-19] MEDS ORDERED: POTASSIUM CHLORIDE 20 MEQ TAB CR PO NR (14:01)
[2019-02-19] MEDS ORDERED: HYOSCYAMINE SULFATE 0.5 MG/ML INJ IV PRN (14:15)
[2019-02-19 16:00] VITALS: BP 112/56
[2019-02-19] MEDS ORDERED: ATIVAN0.5 MG PO (16:12)
[2019-02-19 16:22] VITALS: BP 135/58
[2019-02-19] MEDS: LACTOBACILLUS ACIDOPHILUS CAPSULE PO SCH (17:15)
--- NOTE | 2019-02-19 19:15 | NUR ---
patient received awake, alert, lying quietly in bed. no c/o pain noted. ivf continue to infuse without difficulty. pm assessment complete. family noted at the bedside. patient/family instructed to call for assistance when needed.
[2019-02-19 19:30] VITALS: BP 123/58
[2019-02-19] MEDS ORDERED: POTASSIUM CHLORIDE 20 MEQ in SODIUM CHLORIDE 0.9% 1000ML 1,000 ML IV SCH (19:30)
[2019-02-19 20:00] VITALS: BP 123/58
[2019-02-19] MEDS: KCL 20MEQ/.9 SOD CHL 1,000 ML IV SCH (20:45)
[2019-02-19] MEDS ORDERED: DENOSUMAB 60 MG SQ SCH (21:15)
[2019-02-19] MEDS: MIRTAZAPINE 15 MG TAB PO SCH (21:34)
[2019-02-19] MEDS: SIMVASTATIN 40 MG TAB PO SCH (21:34)
[2019-02-19] MEDS: APIXAB 2.5 MG TABLET PO SCH (21:34)
[2019-02-19] MEDS: LORAZEPAM 0.5 MG TAB PO PRN (21:34)
[2019-02-19] MEDS ORDERED: METHYLPREDNISOLONE SOD SUCC 125 MG/2ML VIAL IV SCH (22:00)
[2019-02-20] VITALS (8 sets, daily range): BP systolic 109–123; BP diastolic 53–58
--- NOTE | 2019-02-20 05:00 | NUR ---
patient oob to bathroom with assistance. patient voids without difficulty. daughter remains at the bedside.
[2019-02-20] MEDS: METRONIDAZOLE 500MG/NS 100ML IV SCH ×3 (05:20→20:37)
[2019-02-20] MEDS: KCL 20MEQ/.9 SOD CHL 1,000 ML IV SCH ×2 (05:42→07:30)
--- NOTE | 2019-02-20 05:43 | NUR ---
left hand noted with mild edema. iv to left ac continues to infuse without difficulty. no swelling noted to iv site at this time.
[2019-02-20 05:59] LABS: BASOPHILS % 0.6 % (0.0-1.0); HEMATOCRIT 33.5 % (34.2-44.1); HEMOGLOBIN 10.8 g/dL (12.0-16.0); LYMPHOCYTES # (AUTO) 0.6 (1.0-3.2); MEAN CORPUSCULAR HEMOGLOBIN 31.2 pg (28-32); MEAN CORPUSCULAR HGB CONC 32.2 g/dL (31-35); MEAN CORPUSCULAR VOLUME 96.8 fL (81-99); MONOCYTES # (AUTO) 0.1 (0.2-0.8); MONOCYTES % 2.9 % (4.4-11.3); NEUTROPHILS # (AUTO) 2.4 (2.1-6.9); NEUTROPHILS % 76.2 % (38.7-80.0); PLATELET COUNT 221 x10e3/uL (140-360); RED BLOOD COUNT 3.46 x10e6/uL (3.6-5.1); RED CELL DISTRIBUTION WIDTH 13.8 % (11.7-14.4)
[2019-02-20 06:10] LABS: ANION GAP 19.6 mmol/L (8-16); CALCIUM 8.8 mg/dL (8.4-10.2); CREATININE, SERUM 0.99 mg/dL (0.57-1.11); POTASSIUM 4.6 mmol/L (3.5-5.1)
[2019-02-20 06:22] LABS: PHOSPHORUS 3.6 MG/DL (2.3-4.7)
[2019-02-20 06:42] LABS: MAGNESIUM 2.1 MG/DL (1.3-2.1)
--- NOTE | 2019-02-20 07:08 | Consultation ---
DATE OF CONSULTATION: HISTORY OF PRESENT ILLNESS: My first encounter with Ms. Henderson during a hospital visit when she presented to the [facility] with severe anemia back in March 2007. She carries diagnosis of Crohn disease from [place] for over the past 10 years and when she presented to the hospital, she was taking Imuran and Pentasa. She has never had a routine blood check since she is taking Imuran for the past 4 years prior to her admission in 2016. She was found then that she is extremely anemic. Imuran was stopped. Oncology Service, Dr. Shepherd was consulted. She was started on Neupogen and subsequently her blood count recovered back to normal and she was discharged home on Pentasa, and Imuran was stopped. She came to see us in the office in September 2017 for a followup and at that visit, blood tests were ordered and colonoscopy also was ordered. In addition to her prior history of Crohn disease, she has a history of glaucoma and the patient is on a constant use of anticoagulant therapy. At her visit in 2017, colonoscopy was planned, was done and revealed normal mucosal and vasculature. No signs of chronic disease except for mild erythema in the rectal area suggestive of proctitis. 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 The patient then was lost to follow up until she presented to the office again for a followup visit on February 12 because of increased number of bowel movements. Until then she never received treatment for collagenous colitis. The patient reports after followup visit having 3-4 loose bowel movement a day without any blood. She denied abdominal pain, bloating, fever breathing weight loss, nausea and vomiting and she was continued to be using Eliquis for deep venous thrombosis suffered while she was in [place]. At this visit, several blood tests were ordered including TB QuantiFERON gold blood test, hepatitis profile, serum reactive protein, celiac screening, pseudocyst, comprehensive panel, B12, RBC folate, TSH, ESR and vitamin D. Also a bone density scan was ordered and a colonoscopy was ordered. The patient never came to the office until January 2019, then her complaint is that she continued to have loose bowel movement. She was still on Pentasa every day. Again, she confirmed in previous information that her Crohn disease was diagnosed in [place], no records available. The patient was started on the . Since no signs of colitis, Pentasa was stopped. Stool samples were ordered for C diff, ova and parasite, culture, calprotectin, and uricemia. Since in 2018, the celiac disease was positive. This was reordered to confirm celiac positive serology. The patient after her office visit. Apparently, her diarrhea got worse and she presented to the emergency room and she was admitted. Her CT scan on admission at [facility] at this admission showed diffuse pancolitis. Talking to the patient, she denied any chills, fever, nausea, vomiting, abdominal pain, or bleeding. Her only complaint is diarrhea. MEDICATIONS: Her medication on admission is Flagyl, Zofran, ceftriaxone, and morphine for pain. ALLERGIES: LEVOFLOXACIN. SURGICAL HISTORY: She denied any prior surgical history except for blood transfusion. SOCIAL HISTORY: She is retired. She has 3 kids. She is a . She does not drink and does not smoke. REVIEW OF SYSTEMS: Only consistent with abdominal discomfort and diarrhea. PHYSICAL EXAMINATION: GENERAL: She is awake, alert, oriented, hemodynamically stable. VITAL SIGNS: Pulse 72, blood pressure 125/54, and temperature 97.8. EYES: Normal sclera. NECK: Supple. LUNGS: Clear. HEART: Irregularly regular. regular beat. ABDOMEN: Soft and nondistended. Normal bowel sounds. No mass. No organomegaly. EXTREMITIES: No edema. CENTRAL NERVOUS SYSTEM: Motor function is grossly intact. LABORATORY DATA: During this admission, sodium 143, potassium 3.1, BUN 4, creatinine 0.9, calcium 7.9, albumin 2.1, total protein 4.8. Amylase is normal. Lipase is normal. Serum reactive protein on this admission is pending. Her white cell count is 189, hemoglobin 9.9, hematocrit 30, white cell count is 4. PT 15, INR 1.15. Urinalysis, 11 to 20 white blood cells. PLAN: The patient carries a history of Crohn disease. No records to document her diagnosis. Colonoscopy done in 2018 showed normal colon. Biopsy was positive for collagenous colitis. However, the CT scan at this time show pancolitis suggestive of inflammatory bowel disease. My plan is to check her fecal calprotectin. Check the results of serum reactive protein. Replace her potassium, start her on liquid diet. Obtain urine for culture and sensitivity since her urinalysis show increasing white blood cells. Obtain a stool for C diff and bacteria. Since the stool is negative for Clostridium difficile, I am going to start today on Solu-Medrol IV and plan for repeat colonoscopy and biopsy. Also I will be checking her vitamin D level and I also start her on probiotic. Taryn Murillo MD RD/MODL /[id number] cc: Taryn Murillo MD
[2019-02-20 07:09] LABS: PLATELET ESTIMATE ADEQUATE; RBC MORPHOLOGY COMMENT NORMAL
[2019-02-20] MEDS: MESALAMINE 500 MG CAPCR PO SCH ×4 (07:45→20:37)
[2019-02-20] MEDS: APIXAB 2.5 MG TABLET PO SCH (09:00)
[2019-02-20] MEDS: METHYLPREDNISOLONE SOD SUCC 125 MG/2ML VIAL IV SCH (09:28)
[2019-02-20] MEDS: LACTOBACILLUS ACIDOPHILUS CAPSULE PO SCH ×2 (09:28→17:22)
[2019-02-20] MEDS: CHOLECALCIFEROL 1,000 UNIT TAB PO SCH (09:29)
--- NOTE | 2019-02-20 13:30 | NUR ---
Spoke with Dr. Murillo regarding plan for colonoscopy. He states he cannot perform colonoscopy now due to pt receiving blood thinner last night. Need to be held for 3 days. States he will talk to pt and family about doing procedure outpatient.
--- NOTE | 2019-02-20 19:00 | NUR ---
patient received awake, alert, lying quietly in bed. no c/o pain noted. ivf continue to infuse without difficulty. pm assessment complete. patient instructed to call for assistance when needed.
[2019-02-20] MEDS: LORAZEPAM 0.5 MG TAB PO PRN (20:37)
[2019-02-20] MEDS: SIMVASTATIN 40 MG TAB PO SCH (20:37)
[2019-02-20] MEDS: MIRTAZAPINE 15 MG TAB PO SCH (20:37)
[2019-02-20] MEDS: CEFTRIAXONE SOD 1 GM/NS 50 ML 50 ML IV SCH (21:58)
[2019-02-20] MEDS ORDERED: SODIUM CHLORIDE 0.9% 1000ML 1,000 ML IV SCH (23:45)
[2019-02-21] VITALS: BP 119/59
--- NOTE | 2019-02-21 | NUR ---
Sarah Goins CROWN CERAMIST here to se patient. K+ 4.6 ivf changed to NS at 100cc/hr at this time.
[2019-02-21] MEDS ORDERED: SODIUM CHLORIDE 0.9% 1000ML 1,000 ML ONE (00:01)
--- NOTE | 2019-02-21 03:40 | NUR ---
am labs drawn at this time.
[2019-02-21 04:00] VITALS: BP 121/58
[2019-02-21 04:04] LABS: BASOPHILS % 0.2 % (0.0-1.0); HEMATOCRIT 28.9 % (34.2-44.1); HEMOGLOBIN 9.6 g/dL (12.0-16.0); LYMPHOCYTES # (AUTO) 0.6 (1.0-3.2); LYMPHOCYTES % 10.6 % (18.0-39.1); MEAN CORPUSCULAR HEMOGLOBIN 31.8 pg (28-32); MEAN CORPUSCULAR HGB CONC 33.2 g/dL (31-35); MEAN CORPUSCULAR VOLUME 95.7 fL (81-99); MONOCYTES # (AUTO) 0.6 (0.2-0.8); MONOCYTES % 10.2 % (4.4-11.3); NEUTROPHILS # (AUTO) 4.6 (2.1-6.9); NEUTROPHILS % 77.5 % (38.7-80.0); PLATELET COUNT 209 x10e3/uL (140-360); RED BLOOD COUNT 3.02 x10e6/uL (3.6-5.1)
[2019-02-21 04:12] LABS: ANION GAP 14.4 mmol/L (8-16); CALCIUM 8.9 mg/dL (8.4-10.2); CREATININE, SERUM 1.02 mg/dL (0.57-1.11); POTASSIUM 5.4 mmol/L (3.5-5.1)
[2019-02-21] MEDS: METRONIDAZOLE 500MG/NS 100ML IV SCH (05:23)
[2019-02-21 05:41] LABS: PLATELET ESTIMATE ADEQUATE
[2019-02-21 05:42] LABS: PLATELET MORPHOLOGY COMMENT FEW LARGE; RBC MORPHOLOGY COMMENT NORMAL
[2019-02-21] MEDS: MESALAMINE 500 MG CAPCR PO SCH (07:30)
[2019-02-21] MEDS ORDERED: FAMOTIDINE 20 MG TAB PO SCH (07:30)
[2019-02-21 07:42] VITALS: BP 118/56
[2019-02-21 07:44] VITALS: BP 118/56
[2019-02-21] MEDS: LACTOBACILLUS ACIDOPHILUS CAPSULE PO SCH (08:52)
[2019-02-21] MEDS: METHYLPREDNISOLONE SOD SUCC 125 MG/2ML VIAL IV SCH (08:52)
[2019-02-21] MEDS: CHOLECALCIFEROL 1,000 UNIT TAB PO SCH (08:52)
[2019-02-21] MEDS ORDERED: METRONIDAZOLE500 MG PO (09:21)
[2019-02-21] MEDS ORDERED: PREDNISONE10 MG PO (09:21)
[2019-02-21] MEDS ORDERED: Lactobacillus Acidophilus PO (09:21)
--- NOTE | 2019-02-21 09:35 | NUR ---
patient alert and oriented with family at bedside. discharge instructions given at this time, family verbalized understanding. IV discontinued, catheter in tact and small dressing applied. patient to be wheeled out to personal auto for family to take home.
[2019-02-21] MEDS ORDERED: ONDANSETRON HCL 4 MG ORAL DISINTEGRATING TAB PO PRN (10:30)
--- NOTE | 2019-02-21 11:11 | Progress Note ---
DATE: 02/20/2019 SUBJECTIVE: The patient is doing well. Per nursing staff, no major diarrhea reported. She still have loose stool. Her C. diff came back negative. The patient was started on Solu-Medrol, she still receiving it. Her blood count, electrolyte, and hemoglobin, hematocrit, white cell count has no change. OBJECTIVE: VITAL SIGNS: She is still afebrile. ABDOMEN: Soft, nontender. The calprotectin is still pending. The serum reactive protein is still pending. The stool culture is still pending. We will continue the current care. Unfortunately, since they started her on blood thinner, denied before, we cannot perform her colonoscopy soon. We will be discharging her tomorrow and we will do the colonoscopy as an outpatient. Taryn Murillo MD RD/MODL /[id number]
--- NOTE | 2019-02-21 11:20 | Progress Note ---
DATE: SUBJECTIVE: Ms. Henderson is doing fine. She is still afebrile. She is still receiving Solu-Medrol. She will be discharged home today and will be followed as an outpatient including performing colonoscopy as an outpatient. She tolerated her diet well. Per nursing staff, she had a soft formed bowel movement today. No other major symptoms such as nausea, vomiting, or pain. OBJECTIVE: VITAL SIGNS: She is afebrile. LABORATORY TESTS: Calprotectin still pending. Serum reactive protein came back to be 300. Stools still pending. Vitamin D level is still pending. She will be discharged home on Flagyl antibiotic and prednisone 40 mg. I will see her and continue her followup as an outpatient. We will schedule her colonoscopy as an outpatient. Taryn Murillo MD RD/KELSIE /[id number]
--- NOTE | 2019-02-22 17:35 | Discharge Summary ---
ADMISSION DIAGNOSES: 1. Infectious colitis with diarrhea. 2. History of Crohn. 3. Acute hypomagnesemia. 4. Acute hypokalemia. 5. Acute kidney injury. 6. Acute hypercalcemia. DISCHARGE DIAGNOSES: 1. Infectious colitis with diarrhea. 2. History of Crohn. 3. Acute hypomagnesemia. 4. Acute hypokalemia. 5. Acute kidney injury. 6. Acute hypercalcemia. 7. Rule out Clostridium difficile. HISTORY: Crohn disease, hyperlipidemia, DVT, possible PE, osteoarthritis, blindness, glaucoma in both eyes. SURGICAL HISTORY: Hysterectomy. FAMILY HISTORY: The patient's mother and father both had cancer. SOCIAL HISTORY: Noncontributory. HOSPITAL COURSE: A 78-year-old female presents to the ER with left lower quadrant abdominal pain, which started 7 days ago with associated nausea and diarrhea. She tried Imodium at home, but was unsuccessful. On admission, CT of the abdomen and pelvis showed nonspecific recurrent colitis involving the cecum, ascending, descending and sigmoid colon, and rectum. Inflammatory bowel disease is a consideration. No abscess. GI was consulted, who plan to do a colonoscopy, but the patient was taking Eliquis at home, so the colonoscopy had to be placed on hold for many days. We checked a fecal calprotectin, which was positive. Clostridium difficile stool came back negative. She was started on IV Solu-Medrol, probiotic, and Flagyl. Stool for culture was sent out, but still pending at the time of discharge. Stool lactoferrin was positive. Stool calprotectin was pending at the time of discharge. So, because of the blood thinner being taken, the patient could not have a colonoscopy for 2 more days, but the diarrhea has stopped. The patient is eating and her pain is controlled, so she will be discharged home with prescriptions for prednisone, Flagyl, and lactobacillus. She will follow up with GI for an outpatient colonoscopy. She was advised to stop the blood thinner until GI told her to restart. The patient and daughter understand discharge instructions and agreed to plan. Vital signs are stable. The patient is afebrile. Dictated by Vera Larkin NP MD JUAREZ Dupree/MODL /[id number]
== END 2019-02-21 11:05 | disposition home or self-care (01) | DRG 392 ==
LOC: ER 18:55 → ERHOLD 23:04 → MED/SURG2 02-19 15:40
PROVIDERS: ADMIT Internal Medicine; ATTEND Internal Medicine
DX: A09 Infectious gastroenteritis and colitis, unspecified (principal); K50.90 Crohn's disease, unspecified, without complications; N17.9 Acute kidney failure, unspecified; Z88.1 Allergy status to other antibiotic agents; E83.42 Hypomagnesemia; E87.6 Hypokalemia; E83.52 Hypercalcemia; Z86.718 Personal history of other venous thrombosis and embolism; Z79.01 Long term (current) use of anticoagulants; H54.7 Unspecified visual loss; Z80.9 Family history of malignant neoplasm, unspecified
CPT/HCPCS: 36415; 74177; 80048; 80053; 81001; 82150; 82306; 83630; 83690; 83735; 83993; 84100; 84132; 85025; 85610; 85730; 86140; 87045; 87177; 87493; 99284; J0696; J2405; J2930; J3475; J7030

== ENCOUNTER 2021-12-05 04:17 | Emergency (ER) | payer MEDICARE, OTHER ==
[~2021-12-05] VITALS: Ht 152.4 cm; Wt 49.9 kg
[~2021-12-05 04:17] MED LIST changes: +ATIVAN0.5 MG PO; +Lactobacillus Acidophilus PO; +METRONIDAZOLE500 MG PO; +PREDNISONE10 MG PO
[2021-12-05] MEDS ORDERED: ONDANSETRON HCL INJ 2MG/ML 2ML 2 MG/ML VIAL IV STA (04:29)
[2021-12-05] MEDS ORDERED: FENTANYL CITRATE/PF 100MCG/2 ML INJ IV ONE (04:30)
[2021-12-05 04:31] LABS: BASOPHILS % 0.2 % (0.0-1.0); EOSINOPHILS # (AUTO) 0.1 (0.0-0.4); EOSINOPHILS % 0.4 % (0.0-6.0); HEMATOCRIT 41.5 % (34.2-44.1); HEMOGLOBIN 13.9 g/dL (12.0-16.0); LYMPHOCYTES % 8.9 % (18.0-39.1); MEAN CORPUSCULAR HEMOGLOBIN 30.6 pg (28-32); MEAN CORPUSCULAR HGB CONC 33.5 g/dL (31-35); MEAN CORPUSCULAR VOLUME 91.4 fL (81-99); MONOCYTES # (AUTO) 0.3 (0.2-0.8); MONOCYTES % 2.5 % (4.4-11.3); NEUTROPHILS % 87.7 % (38.7-80.0); PLATELET COUNT 213 x10e3/uL (140-360); RED BLOOD COUNT 4.54 x10e6/uL (3.6-5.1)
[2021-12-05] MEDS ORDERED: FENTANYL CITRATE/PF 100MCG/2 ML INJ ONE (04:37)
[2021-12-05] MEDS ORDERED: ONDANSETRON HCL INJ 2MG/ML 2ML 2 MG/ML VIAL ONE (04:37)
[2021-12-05] MEDS ORDERED: SODIUM CHLORIDE 0.9% 1000ML 1,000 ML ONE (04:38)
[2021-12-05 05:00] LABS: CREATINE KINASE MB 1.6 ng/mL (0-5.0)
[2021-12-05 05:01] LABS: ALBUMIN 4.2 g/dL (3.5-5.0); ALBUMIN/GLOBULIN RATIO 1.3 (0.8-2.0); ANION GAP 16.9 mmol/L (8-16); CALCIUM 9.4 mg/dL (8.4-10.2); CREATININE, SERUM 1.21 mg/dL (0.57-1.11); POTASSIUM 3.9 mmol/L (3.5-5.1)
== END 2021-12-05 09:22 | disposition home or self-care (01) ==
LOC: ER 04:22
DX: R10.13 Epigastric pain (principal); R07.89 Other chest pain; E78.5 Hyperlipidemia, unspecified; E78.00 Pure hypercholesterolemia, unspecified; R94.31 Abnormal electrocardiogram [ECG] [EKG]; Z86.718 Personal history of other venous thrombosis and embolism
CPT/HCPCS: 36415; 71045; 80053; 82550; 82553; 83690; 83880; 84484; 85025; 85379; 93005; 99284; J2405; J3010; J7030